=== PATIENT | female | born 1975 | race Caucasian/White ===

== ENCOUNTER 2022-05-12 12:35 | Inpatient (IN) | payer BC, SELFPAY ==
[2022-05-12] VITALS (8 sets, daily range): BP systolic 131–172; BP diastolic 74–101; PULSE 82–108; RESP 12–18; TEMP 36.5–37.3; O2SAT 96–100; BMI 45.3
--- NOTE | 2022-05-12 13:22 | ED_ITS ---
Documented by User: JULIO Daniel 05/12/22 16:46 HPI - Abdominal Pain General: Chief Complaint: Abdominal Pain Stated Complaint: Left lower abd pain Time Seen by Provider: 05/12/22 13:11 History of Present Illness: Patient is a 46-year-old female comes to the ED with abdominal pain. Symptoms started approximately 2 days ago. Abdominal pain is in the left lower quadrant of her abdomen. She says it initially started it was just a little sore and tender but has continued to progress and get more painful. She says its not constant aching pain that episodically increases in intensity. She currently rates the pain a 6 out of 10. Pain worsened after she had a bowel movement this morning. Bowel movement was normal. Denies any fever, chills, chest pain, shortness of breath, vomiting, diarrhea, constipation, blood in the stool, dysuria or hematuria. Associated Symptoms: Reports nausea; Denies chills, constipation, diarrhea, dysuria, fever(s), hematochezia, hematuria and vomiting Related Data: Date of Last Menstrual Period: 05/02/22 Review of Systems Const: Denies: fever(s), chills or fatigue Eyes: Denies: change in vision or eye discomfort ENMT: Denies: throat pain, odynophagia, nasal discharge or nasal congestion Card: Denies: chest pain, palpitations, edema, swelling of feet/ankles, dyspnea on exertion or orthopnea Resp: Denies: dyspnea, productive cough or non-productive cough GI: Reports: abdominal pain and nausea; Denies: vomiting, diarrhea, constipation or hematochezia : Denies: flank pain, dysuria or hematuria Musc: Denies: neck pain, back pain or extremity swelling Skin/Breast: Denies: rash or new lesions Neuro: Denies: headache(s), numbness in extremities or weakness in extremities PFSH ED PFSH: Medical History Hypothyroidism Iron deficiency anemia No pertinent family history Protein S deficiency Surgical History History of History of cholecystectomy Female Reproductive History: Date of last menstrual period: 05/02/22 Physical Exam Const: COMMON NORMALS: patient oriented x3 and alert GENERAL APPEARANCE: cooperative HENMT: COMMON NORMALS: normocephalic HEAD & SCALP: normocephalic MOUTH: Normal oral and palatal mucosa present THROAT: posterior oropharynx normal and uvula midline Neck/C-Spine: COMMON NORMALS: supple GENERAL: Yes normal visual inspection Resp: COMMON NORMALS: normal respiratory effort, No retractions, No use of accessory muscles and clear to auscultation bilaterally AUSCULTATION: clear to auscultation bilaterally Cardio: COMMON NORMALS: regular rate, regular rhythm, S1 normal heart sound present, S2 normal heart sound present, No gallops present (Cardio), No clicks present (Cardio), No murmurs present (Cardio) and Peripheral pulses 2+ throughout RATE: regular rate RHYTHM: regular rhythm HEART SOUNDS: S1 normal heart sound present and S2 normal heart sound present PERIPHERAL PULSES: Peripheral pulses 2+ throughout GI: COMMON NORMALS: Normal to inspection, nondistended, normoactive bowel sounds present, Soft to palpation and no masses PALPATION: Yes Soft to palpation and Yes Tenderness to palpation present (GI) Details: LLQ : COMMON NORMALS: Yes no CVA tenderness BLADDER/KIDNEY EXAM: Yes no CVA tenderness Back/Pelvis: COMMON NORMALS: no CVA tenderness Extremity: COMMON NORMALS: normal to inspection Neuro: COMMON NORMALS: patient oriented x3 SENSORIUM/ORIENTATION: Yes alert GAIT: Yes Normal gait present Skin: GENERAL SKIN EXAM: dry skin Course Vital Signs: Vital signs: Vital Signs Temperature 98.9 F 05/15/22 03:29 Pulse Rate 62 05/15/22 03:29 Respiratory Rate 18 05/15/22 03:29 Blood Pressure 141/82 05/15/22 03:29 Pulse Oximetry 98 05/15/22 03:29 Oxygen Delivery Me thod 05/15/22 03:29 MDM - Abdominal Pain Medical Decision Making Patient is a 46-year-old female who comes to the ED with left lower quadrant abdominal pain. Symptoms have been going on for past 2 days. Pain worsens after she has a bowel movement. Denies any fever, diarrhea, constipation or blood in stool. Endorses nausea but denies any emesis. Vitals are stable. Patient has some tenderness to the left lower quadrant of abdomen. Rest of exam is benign. White blood cell count of 15 rest of her labs are unremarkable. CT of abdomen pelvis shows acute diverticulitis with a contained perforation. I talked with Dr. Moya about patient case and he is going to contact hospitalist and have patient admitted. She was given IV fluids and IV Zosyn here in the ED. Lab Data I reviewed the patient's lab results. : 05/15/22 04:14 05/15/22 04:14 Labs/Radiology: Radiology Impressions Abdomen/Pelvis CT 05/12/22 13:50 IMPRESSION: 1. Acute diverticulitis at the junction of the distal descending and sigmoid colon, with prominent infiltration of pericolonic fat and small foci of extraluminal air, consistent with contained perforation. 2. Additional findings as described above. THIS REPORT CONTAINS FINDINGS THAT MAY BE CRITICAL TO PATIENT CARE. The findings were verbally communicated via telephone conference with PJ MELENDEZ at 3:25 PM CDT on 05/12/2022. The findings were acknowledged and understood. Laboratory Results WBC 15.0 10^3/uL (4.0-10.0) H 05/12/22 13:30 RBC 4.89 10^6/uL (4.1-5.3) 05/12/22 13:30 Hgb 13.3 g/dL (11.5-15.3) 05/12/22 13:30 Hct 42.5 % (37.0-47.0) 05/12/22 13:30 MCV 86.9 fl (81-99) 05/12/22 13:30 MCH 27.2 pg (28.0-34.0) L 05/12/22 13:30 MCHC 31.3 g/dL (30.0-36.0) 05/12/22 13:30 RDW 13.7 % (12.1-15.1) 05/12/22 13:30 Plt Count 314 10^3/cmm (130-400) 05/12/22 13:30 MPV 11.2 fL (7.4-10.4) H 05/12/22 13:30 Neut % (Auto) 88.1 % 05/12/22 13:30 Lymph % (Auto) 5.3 % 05/12/22 13:30 [place] % (Auto) 5.7 % 05/12/22 13:30 Eos % (Auto) 0.1 % 05/12/22 13:30 Baso % (Auto) 0.3 % 05/12/22 13:30 Neut # (Auto) 13.18 10^3/uL (1.8-7.7) H 05/12/22 13:30 Lymph # (Auto) 0.8 10^3/uL (0.8-4.8) 05/12/22 13:30 [place] # (Auto) 0.9 10^3/uL (0.2-0.9) 05/12/22 13:30 Eos # (Auto) 0.0 10^3/uL (0.0-0.8) 05/12/22 13:30 Baso # (Auto) 0.0 10^3/uL (0.0-0.1) 05/12/22 13:30 Nucleated RBC % (auto) 0 % 05/12/22 13:30 Nucleated RBCs # 0.0 /100WBC 05/12/22 13:30 Sodium 140 mmol/L (136-145) 05/12/22 13:30 Potassium 4.0 mmol/L (3.5-5.1) 05/12/22 13:30 Chloride 103 mmol/L (98-107) 05/12/22 13:30 Carbon Dioxide 24 mmol/L (22-29) 05/12/22 13:30 Anion Gap 17.0 (5-19) 05/12/22 13:30 BUN 9 mg/dL (6-20) 05/12/22 13:30 Creatinine 0.7 mg/dL (0.5-0.9) 05/12/22 13:30 GFR Calculation 90.5 mL/min (90-130) 05/12/22 13:30 Glucose 93 mg/dL (65-115) 05/12/22 13:30 Calculated Osmolality 288 mOsm/kg (285-295) 05/12/22 13:30 Calcium 8.7 mg/dL (8.5-10.5) 05/12/22 13:30 Iron 14 ug/dL (37-145) L 05/12/22 13:30 TIBC 306 mcg/dl 05/12/22 13:30 % Saturation 4.5 % (20-50) L 05/12/22 13:30 Unsat Iron Binding 292 ug/dL (112-347) 05/12/22 13:30 Total Bilirubin 0.4 mg/dL (0.15-1.2) 05/12/22 13:30 AST 12 U/L (0-32) 05/12/22 13:30 ALT 14 U/L (0-33) 05/12/22 13:30 Alkaline Phosphatase 74 U/L (35-105) 05/12/22 13:30 Total Protein 6.4 g/dL (6.6-8.7) L 05/12/22 13:30 Albumin 4.1 g/dL (3.5-5.2) 05/12/22 13:30 Globulin 2.3 g/dL (1.3-4.6) 05/12/22 13:30 Lipase 51 U/L (13-60) 05/12/22 13:30 Vitamin B12 639 pg/mL (232-1245) 05/12/22 13:30 Folate 12.9 ng/mL (4.8-37.3) 05/12/22 13:30 Procalcitonin 0.12 ng/mL (0-0.5) 05/12/22 13:30 TSH 1.86 uIU/mL (0.27-4.20) 05/12/22 13:30 HCG, Qual Negative (Negative) 05/12/22 13:30 Urine Color Yellow (Yellow) 05/12/22 13:09 Urine Appearance Hazy (CLEAR) A 05/12/22 13:09 Urine pH 5 (5-7) 05/12/22 13:09 Ur Specific [place] 1.020 (1.005-1.030) 05/12/22 13:09 Urine Protein Neg (Negative) 05/12/22 13:09 Urine Glucose (UA) Norm (Normal) 05/12/22 13:09 Urine Ketones 3+ (Negative) H 05/12/22 13:09 Urine Blood 2+ (Negative) H 05/12/22 13:09 Urine Nitrate Negative (Negative) 05/12/22 13:09 Urine Bilirubin Neg (Negative) 05/12/22 13:09 Urine Urobilinogen Norm mg/dL (Negative) 05/12/22 13:09 Ur Leukocyte Esterase Negative (Negative) 05/12/22 13:09 Urine RBC 0-4 /hpf (0-2) H 05/12/22 13:09 Urine WBC Rare /hpf (0-5) 05/12/22 13:09 Ur Squamous Epith Cells 15-25 /hpf (0-5) H 05/12/22 13:09 Amorphous Sediment Not Reportable 05/12/22 13:09 Urine Bacteria 3+ /hpf (NONE) H 05/12/22 13:09 Urine Mucus 2+ /hpf 05/12/22 13:09 Discharge Plan Discharge Patient Disposition: Admitted As Inpatient Admit Provider: Britton Burgos Clinical Impression: Diverticulitis Condition: Stable Sign Out Sign Out Data: Patient Sign Out occurred on 05/12/22 at 15:42. Patient's care was discussed, and care was transferred from to Leodan Moya DO. Coding Level of Care Code ED Explosive Ordnance Manager for Chg Fwd Exam Comprehensive Documented by User: Leodan Moya DO 05/15/22 06:08 HPI - Abdominal Pain General: Chief Complaint: Abdominal Pain Stated Complaint: Left lower abd pain Time Seen by Provider: 05/12/22 13:11 [facility] ED PFSH: Medical History Hypothyroidism Iron deficiency anemia No pertinent family history Protein S deficiency Surgical History History of History of cholecystectomy Course Vital Signs: Vital signs: Vital Signs Temperature 98.9 F 05/15/22 03:29 Pulse Rate 62 05/15/22 03:29 Respiratory Rate 18 05/15/22 03:29 Blood Pressure 141/82 05/15/22 03:29 Pulse Oximetry 98 05/15/22 03:29 Oxygen Delivery Me thod 05/15/22 03:29 MDM - Abdominal Pain Medical Decision Making Patient is a 46-year-old female who comes to the ED with left lower quadrant abdominal pain. Symptoms have been going on for past 2 days. Pain worsens after she has a bowel movement. Denies any fever, diarrhea, constipation or blood in stool. Endorses nausea but denies any emesis. Vitals are stable. Patient has some tenderness to the left lower quadrant of abdomen. Rest of exam is benign. White blood cell count of 15 rest of her labs are unremarkable. CT of abdomen pelvis shows acute diverticulitis with a contained perforation. I talked with Dr. Moya about patient case and he is going to contact hospitalist and have patient admitted. She was given IV fluids and IV Zosyn here in the ED. Discussed with hospitalist orders written. Patient has acute diverticulitis with a microperforation no abscess formation. Reviewed with the patient. IV an tibiotics initiated. Chart reviewed and patient discussed with midlevel. Agree with assessment and plan. Lab Data : 05/15/22 04:14 05/15/22 04:14 Labs/Radiology: Radiology Impressions Abdomen/Pelvis CT 05/12/22 13:50
[2022-05-12 13:40] LABS: Add Urine Microscopic? YES; Bilirubin Urine Neg (Negative); Blood Urine 2+ (Negative); Glucose Urine UA Norm (Normal); Ketones Urine 3+ (Negative); Leukocyte Esterase Urine Negative (Negative); Nitrate Urine Negative (Negative); Protein Urine Neg (Negative); Urine Appearance Hazy (CLEAR); Urine Color Yellow (Yellow); Urobilinogen Urine Norm (Negative); pH Urine 5 (5-7)
[2022-05-12 13:41] LABS: RBC Urine 0-4 /hpf (0-2); Squamous Epithelial Cell Urine 15-25 /hpf (0-5); WBC Urine RARE /hpf (0-5)
[2022-05-12 13:42] LABS: Add Urine Culture? No; Bacteria Urine 3+ /hpf; Mucus Urine 2+ /hpf
--- NOTE | 2022-05-12 13:50 | CTR_ITS ---
PROCEDURE INFORMATION: Exam: CT Abdomen And Pelvis Without Contrast Exam date and time: 05/12/2022 2:29 PM Age: 46 years old Clinical indication: Abdominal pain; Localized; Left lower quadrant (llq); Additional info: Llq abdominal tenderness and nausea TECHNIQUE: Imaging protocol: Computed tomography of the abdomen and pelvis without contrast. Radiation optimization: All CT scans at this facility use at least one of these dose optimization techniques: automated exposure control; mA and/or kV adjustment per patient size (includes targeted exams where dose is matched to clinical indication); or iterative reconstruction. COMPARISON: No relevant prior studies available. RADIATION DOSE METRICS: Total DLP (mGy-cm): 1144.17 FINDINGS: Detailed evaluation of the abdominal and pelvic viscera is somewhat limited in the absence of intravenous contrast. Lungs: No significant airspace or pleural disease. Liver: Fatty infiltration of the liver. Gallbladder and bile ducts: Status post cholecystectomy. Pancreas: Fat attenuation about the pancreatic body. Spleen: Enlarged spleen measuring 14.0 cm in length. Adrenal glands: Unremarkable adrenals. Kidneys and ureters: Normal renal morphology. No hydronephrosis. Stomach and bowel: Acute diverticulitis at the junction of the distal descending and sigmoid colon, with prominent infiltration of pericolonic fat and small foci of extraluminal air, consistent with contained perforation. Questionable wall thickening in the nondistended stomach. Scattered diverticula. Appendix: No acute appendicitis. Intraperitoneal space: Small quantity of free fluid in the left lower quadrant. Vasculature: Normal caliber of the abdominal aorta. Lymph nodes: Subcentimeter lymph nodes. Urinary bladder: Unremarkable bladder. Reproductive: 2.4 cm left ovarian cyst. Bones/joints: Mild degenerative change. Soft tissues: Umbilical hernia. Calcification at the gluteal muscle attachment sites. CT/CT abdomen pelvis wo con [id number] IMPRESSION: 1. Acute diverticulitis at the junction of the distal descending and sigmoid colon, with prominent infiltration of pericolonic fat and small foci of extraluminal air, consistent with contained perforation. 2. Additional findings as described above. THIS REPORT CONTAINS FINDINGS THAT MAY BE CRITICAL TO PATIENT CARE. The findings were verbally communicated via telephone conference with PJ MELENDEZ at 3:25 PM CDT on 05/12/2022. The findings were acknowledged and understood.
[2022-05-12 13:56] LABS: HCG, Serum Qual Negative (Negative)
[2022-05-12 14:01] LABS: Alanine Aminotransferase 14 U/L (0-33); Albumin Level 4.1 g/dL (3.5-5.2); Alkaline Phosphatase 74 U/L (35-105); Aspartate Amino Transferase 12 U/L (0-32); Blood Urea Nitrogen 9 mg/dL (6-20); Calcium 8.7 mg/dL (8.5-10.5); Carbon Dioxide 24 mmol/L (22-29); Chloride 103 mmol/L (98-107); Globulin 2.3 g/dL (1.3-4.6); Glomerular Filtration Rate 90.5 mL/min (90-130); Glucose 93 mg/dL (65-115); Lipase 51 U/L (13-60); Osmolality Calculated 288 mOsm/kg (285-295); Sodium 140 mmol/L (136-145); Total Bilirubin 0.4 mg/dL (0.15-1.2); Total Protein 6.4 g/dL (6.6-8.7)
[2022-05-12 14:05] LABS: Basophils % 0.3 %; Eosinophils % 0.1 %; Hematocrit 42.5 % (37.0-47.0); Hemoglobin 13.3 g/dL (11.5-15.3); Lymphocytes # 0.8 10^3/uL (0.8-4.8); Lymphocytes % 5.3 %; Mean Corpuscular HGB Conc 31.3 g/dL (30.0-36.0); Mean Corpuscular Hemoglobin 27.2 pg (28.0-34.0); Mean Corpuscular Volume 86.9 fl (81-99); Mean Platelet Volume 11.2 fL (7.4-10.4); Monocytes # 0.9 10^3/uL (0.2-0.9); Monocytes % 5.7 %; Neutrophils # 13.18 10^3/uL (1.8-7.7); Neutrophils % 88.1 %; Nucleated Red Blood Cells % 0 %; Platelet Count 314 10^3/cmm (130-400); Red Blood Count 4.89 10^6/uL (4.1-5.3); Red Cell Distribution Width 13.7 % (12.1-15.1)
[2022-05-12] MEDS: HYDROmorphone 1 mg/mL INJ 1 mL IVP ×2 (14:51→21:58)
[2022-05-12] MEDS: ondansetron 2 mg/ML SDV 2 mL 4 MG IVP ×2 (14:51→22:02)
--- NOTE | 2022-05-12 17:03 | P.HP_ITS ---
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 Complains of nausea but no vomiting. Has been having watery bowel movements. She states watery bowel movements this normal for her. In the ER CT scan was done which showed contained microperforation along with diverticulitis. Medicine was asked for admission given her history of protein S deficiency. Review of Systems General: Reports: 10 or more systems reviewed and unremarkable except in HPI and below Const: Denies: fever(s), chills, body aches, change in appetite, change in weight, malaise, night sweats, diaphoresis, change in sleep pattern, daytime sleepiness or snoring Eyes: Denies: change in vision, blurry vision, photophobia, eye discomfort or eye discharge ENMT: Denies: throat pain, enlarged tonsils, hoarseness, mouth pain, oral sores, dry mouth, tinnitus, nasal congestion or post nasal drip Card: Denies: chest pain, palpitations, irregular heart rhythm, edema, swelling of feet/ankles, lightheadedness, syncope, pre-syncope, dyspnea on exertion, orthopnea, leg pain with exertion or acrocyanosis Resp: Denies: dyspnea, productive cough, non-productive cough, wheezing, stri milena, pain on inspiration, change in phlegm color, hemoptysis or chest congestion GI: Denies: abdominal pain, nausea, vomiting, hematemesis, coffee ground emesis, dysphagia, heartburn, diarrhea, constipation, bloating, GI cramping, change in bowel habits, pain on defecation, hematochezia or melena : Denies: flank pain, dysuria, urinary frequency, urinary urgency, urinary hesitancy, nocturia or hematuria Musc: Denies: neck pain, back pain, extremity pain, joint pain, joint swelling, joint redness, joint stiffness or limited range of motion Neuro: Denies: headache(s), numbness in extremities, weakness in extremities, sensory changes, lack of coordination, difficulty walking, frequent falls, dizziness, vertigo, confusion, Slurred speech present, difficulty communicating thoughts or seizure-like activity Psych: Denies: anxiety, depression, mood swings, panic attacks, hopelessness or irritability Endo: Denies: polyuria, polydipsia, tired all the time, cold intolerance, excessive sweating, flushing or heat intolerance [place]/Lymph: Denies: easy bruising or easy bleeding All/Imm: Denies: tongue swelling, facial swelling or acute wheezing Medications/Allergies Home Medications Medication Instructions Recorded Confirmed Last Taken Type bimatoprost 0.01 % eye drops 1 drp ophthalmic (eye) BEDTIME 05/12/22 05/12/22 05/11/22 History (Lumigan) famotidine 40 mg tablet 40 mg PO DAILY 05/12/22 05/12/22 05/11/22 History ferrous sulfate 27 mg iron tablet 27 mg PO DAILY 05/12/22 05/12/22 05/11/22 History levothyroxine 50 mcg tablet 50 mcg PO DAILY 05/12/22 05/12/22 05/11/22 History (Synthroid) rivaroxaban 20 mg tablet (Xarelto) 20 mg PO DAILY 05/12/22 05/12/22 05/11/22 History triamterene 37.5 1 tab PO DAILY 05/12/22 05/12/22 05/11/22 History mg-hydrochlorothiazide 25 mg tablet Allergies Allergy/AdvReac Type Severity Reaction Status Date / Time No Known Allergies Allergy Unverified 05/12/22 15:57 PFSH Acute PFSH: Medical History (Updated 05/12/22 @ 17:08 by Britton Burgos MD) Hypothyroidism Iron deficiency anemia No pertinent family history Protein S deficiency Surgical History History of History of cholecystectomy Female Reproductive History: Date of last menstrual period: 05/02/22 Vitals/I&O/Wt Last Vital Signs Temp 97.7 F 05/12/22 12:40 Pulse 108 H 05/12/22 12:40 Resp 16 05/12/22 14:51 BP 172/101 05/12/22 12:40 Pulse Ox 96 05/12/22 14:51 O2 Del Method 05/12/22 12:40 Weight last 48 hrs Weight 119.748 kg Physical Exam Narrative: General: No acute distress, AO x3 HEENT: PERRLA, pupils bilaterally equal and reactive Chest: Normal vesicular breath sounds, no added sounds, equal good air entry bilaterally CVS: S1-S2 regular, no murmurs, no tachycardia, no gallops, no rubs Abdomen: Tender in left lower quadrant, rigidity present, guarding present, no organomegaly, bowel sounds present but sluggish Neuro: No focal deficits, no facial deformity, AO x3, power 5/5 in all limbs Data : 05/12/22 13:30 05/12/22 13:30 A&P Assessment and plan (1) Perforation and abscess of large intestine concurrent with and due to diverticulitis: Seen on CT scan. Surgery consulted from the ER. NPO. Blood culture, MRSA swab, procalcitonin. IV Zosyn. Protonix 40 mg IV daily, Zofran as needed. Out of bed to chair, early ambulation Status: Acute (2) Diverticulitis: Status: Acute (3) Protein S deficiency: Continue with home dose of Xarelto. Monitor hemoglobin. Status: Acute (4) Iron deficiency anemia: Hemoglobin stable. Check iron panel, folate, B12 Status: Acute Plan Full code NPO. Protonix for PUD prophylaxis Xarelto will suffice as DVT prophylaxis Attestations Medical Necessity Statement*: Admission for more than 2 midnights for management of contained perforation in setting of diverticulitis Time Spent in Patient Care: Greater than 35 minutes Coding Level of Care Code Acute Assistant Professor Of Education for [facility] Heladio Diagnoses Perforation and abscess of large intestine concurrent with and due to diverticulitis K57.20 Diverticulitis K57.92 Protein S deficiency D68.59 Iron deficiency anemia D50.9
[2022-05-12] MEDS: sodium chloride 0.9% 1,000 ML 999 ML IV (17:14)
[2022-05-12] MEDS: piperacillin-tazobactam 3.375 GM in sodium chloride 0.9% (plus) 50 ML IV (17:14)
[2022-05-12 17:57] LABS: Procalcitonin 0.12 ng/mL (0-0.5); Thyroid Stimulating Hormone 1.86 uIU/mL (0.27-4.20)
[2022-05-12 18:08] LABS: Iron 14 ug/dL (37-145); Percent Saturation 4.5 % (20-50); Total Iron Binding Capacity 306 mcg/dl; Unsaturated Iron Binding 292 ug/dL (112-347)
[2022-05-12] MEDS: pantoprazole 40 mg SDV IVP (18:47)
[2022-05-12 19:21] LABS: Vitamin B12 639 pg/mL (232-1245)
[2022-05-12] MEDS: dextrose 5%-sod chloride 0.9% 1,000 ML 50 ML IV (19:25)
[2022-05-12 19:59] LABS: Folate Level 12.9 ng/mL (4.8-37.3)
[2022-05-13] VITALS (8 sets, daily range): BP systolic 102–121; BP diastolic 60–72; PULSE 73–78; RESP 12–18; TEMP 36.6–36.8; O2SAT 95–99
[2022-05-13] MEDS: piperacillin-tazobactam 3.375 GM in sodium chloride 0.9% (plus) 50 ML IV ×3 (00:42→18:01)
[2022-05-13] MEDS: HYDROmorphone 1 mg/mL INJ 1 mL IVP ×2 (04:16→15:17)
[2022-05-13 04:27] LABS: Basophils % 0.4 %; Eosinophils # 0.1 10^3/uL (0.0-0.8); Eosinophils % 0.6 %; Hematocrit 37.2 % (37.0-47.0); Hemoglobin 11.2 g/dL (11.5-15.3); Lymphocytes # 1.3 10^3/uL (0.8-4.8); Lymphocytes % 12.6 %; Mean Corpuscular HGB Conc 30.1 g/dL (30.0-36.0); Mean Corpuscular Hemoglobin 27.4 pg (28.0-34.0); Mean Platelet Volume 10.9 fL (7.4-10.4); Monocytes # 0.8 10^3/uL (0.2-0.9); Monocytes % 8.1 %; Neutrophils # 7.83 10^3/uL (1.8-7.7); Nucleated Red Blood Cells % 0 %; Platelet Count 244 10^3/cmm (130-400); Red Blood Count 4.09 10^6/uL (4.1-5.3)
[2022-05-13 04:41] LABS: Chol HDL Ratio 3.16 mg/dL (0.0-4.40); Cholesterol 117 mg/dL (0-200); HDL Cholesterol 37 mg/dL (60-100); LDL Cholesterol Calculated 69 mg/dL (50-129); Triglycerides 55 mg/dL (0-150); VLDL Cholestrol Calculation 11 mg/dL (0-30)
[2022-05-13 04:46] LABS: Alanine Aminotransferase 25 U/L (0-33); Albumin Level 3.1 g/dL (3.5-5.2); Alkaline Phosphatase 75 U/L (35-105); Aspartate Amino Transferase 29 U/L (0-32); Blood Urea Nitrogen 7 mg/dL (6-20); Calcium 8.3 mg/dL (8.5-10.5); Carbon Dioxide 23 mmol/L (22-29); Chloride 106 mmol/L (98-107); Globulin 2.6 g/dL (1.3-4.6); Glomerular Filtration Rate 90.5 mL/min (90-130); Glucose 109 mg/dL (65-115); Osmolality Calculated 283 mOsm/kg (285-295); Sodium 137 mmol/L (136-145); Total Bilirubin 0.6 mg/dL (0.15-1.2); Total Protein 5.7 g/dL (6.6-8.7)
[2022-05-13 04:51] LABS: Estmated Average Glucose 108; Hemoglobin A1C 5.4 % (4.0-6.0)
[2022-05-13] MEDS: acetaminophen 325 mg Tablet 650 MG PO ×2 (04:57→15:17)
[2022-05-13 05:09] LABS: Anion Gap 11.4 (5-19); Potassium 3.4 mmol/L (3.5-5.1)
[2022-05-13] MEDS: levothyroxine 50 mcg Tablet PO (08:31)
[2022-05-13] MEDS: ondansetron 2 mg/ML SDV 2 mL 4 MG IVP ×2 (08:31→15:18)
--- NOTE | 2022-05-13 08:37 | P.CONIM_ITS ---
Providers/Reason For Consult Consulting Physician/Specialty*: Dr. Jonathan Browne, DO/General surgery Reason for Consult*: Diverticulitis with microperforation Attending Physician: Britton Burgos MD History of Present Illness History of Present Illness Tiara Briggs is a 46 year old female, with protein S deficiency on Xarelto, presented to the hospital with a 2-day history of sharp and constant left lower quadrant abdominal pain. The pain does not radiate. Palpation makes the pain worse. Nothing makes pain better. She denies any diarrhea or constipation. She has felt nauseous. Denies any hematochezia and/or melena. Denies fever or chills. She has never had diverticulitis before. She has never had a colonoscopy before. Review of Systems General: Reports: 10 or more systems reviewed and unremarkable except in HPI and below Medications/Allergies Home Medications Medication Instructions Recorded Confirmed Last Taken Type bimatoprost 0.01 % eye drops 1 drp ophthalmic (eye) BEDTIME 05/12/22 05/12/22 05/11/22 History (Lumigan) famotidine 40 mg tablet 40 mg PO DAILY 05/12/22 05/12/22 05/11/22 History ferrous sulfate 27 mg iron tablet 27 mg PO DAILY 05/12/22 05/12/22 05/11/22 History levothyroxine 50 mcg tablet 50 mcg PO DAILY 05/12/22 05/12/22 05/11/22 History (Synthroid) rivaroxaban 20 mg tablet (Xarelto) 20 mg PO DAILY 05/12/22 05/12/22 05/11/22 History triamterene 37.5 1 tab PO DAILY 05/12/22 05/12/22 05/11/22 History mg-hydrochlorothiazide 25 mg tablet Allergies Allergy/AdvReac Type Severity Reaction Status Date / Time No Known Allergies Allergy Unverified 05/12/22 15:57 Current Medications Generic Name Dose Route Start Last Admin Trade Name Freq PRN Reason Stop Dose Admin Acetaminophen 650 mg 05/13/22 04:37 05/13/22 04:57 Acetaminophen 325 Mg Tablet PO 650 mg Q6H PRN Administration MILD PAIN Hydromorphone HCl 1 mg 05/12/22 20:05 05/13/22 04:16 Hydromorphone 1 Mg/Ml Inj 1 Ml IVP 1 mg Q4H PRN Administration MODERATE TO SEVERE PAIN Piperacillin Sod/Tazobactam 50 mls @ 12.5 mls/hr 05/13/22 01:00 05/13/22 04:51 Sod 3.375 gm/ Sodium Chloride IV Infused Q8H WALLACE Infusion Protocol Dextrose/Sodium Chloride 1,000 mls @ 50 mls/hr 05/12/22 18:28 05/12/22 19:25 Dextrose 5%-Sod Chloride 0.9% IV 50 mls/hr .Q20H WALLACE Administration Levothyroxine Sodium 50 mcg 05/13/22 09:00 05/13/22 08:31 Levothyroxine 50 Mcg Tablet PO 50 mcg DAILY WALLACE Administration Ondansetron HCl 4 mg 05/12/22 18:28 05/13/22 08:31 Ondansetron 2 Mg/Ml Sdv 2 Ml IVP 4 mg Q6H PRN Administration NAUSEA AND VOMITING Pantoprazole Sodium 40 mg 05/12/22 18:28 05/12/22 18:47 Pantoprazole 40 Mg Sdv IVP 40 mg Q24H WALLACE Administration PFSH Acute PFSH: Medical History Hypothyroidism Iron deficiency anemia No pertinent family history Protein S deficiency Surgical History History of History of cholecystectomy Female Reproductive History: Date of last menstrual period: 05/02/22 Vitals/I&O/Wt Last Vital Signs Temp 98.2 F 05/13/22 07:07 Pulse 73 05/13/22 07:07 Resp 18 05/13/22 07:07 BP 104/60 05/13/22 07:07 Pulse Ox 97 05/13/22 07:07 O2 Del Method 05/13/22 07:07 05/12/22 05/13/22 05/13/22 22:59 06:59 14:59 Intake Total 1050 / 1050 50 / 1100 Balance 1050 / 1050 50 / 1100 Weight last 48 hrs Weight 280 lb 5 oz Weight 264 lb Physical Exam Narrative: General : Patient is well developed , no acute distress, oriented x3 Head : Normal cephalic, a-traumatic. Ears : Pinnae and external canal are normal. Hearing is normal. Eyes : PERRLA, Sclera and injection are normal. No conjunctival discharge. Nose : Mucous membranes are without erythema. Throat : buccal mucosa is normal, gums are without significant recession or hypertrophy. Lungs : Equal chest rise bilaterally, no use of accessory muscles, trachea is midline. Cor : Rate and rhythm are normal. Abdomen : Soft, ND, tenderness to palpation in the left lower quadrant, no g/r/m Extremities : No edema, no cyanosis or clubbing, dorsalis pedis pulses are present bilaterally, non-tender to palpation of calves. Upper extremities are normal bilaterally. Back : non-tender to palpation, no CVA tenderness. Neuro : CN II - XII intact, Upper and lower extremities have equal and full strength Data : 05/13/22 04:01 05/13/22 04:01 Micro: Microbiology 05/12/22 19:01 Blood Culture - Preliminary Blood SPECIMEN COLLECTED 05/12/22 19:01 Blood Culture - Preliminary Blood SPECIMEN COLLECTED A&P Assessment and plan (1) Diverticulitis of large intestine with complication: Status: Acute Plan Continue Zosyn and night course of antibiotics, to go home on Augmentin N.p.o.-bowel rest for today and if patient's symptoms improve will start clear liquids tomorrow No acute surgical intervention She will need a colonoscopy in 6 to 8 weeks Medical management per hospitalist Coding Level of Care Code Acute Electrical Controls Technician for [employer] [facility] Diagnoses Diverticulitis of large intestine with complication K57.32
--- NOTE | 2022-05-13 12:56 | P.PN_ITS ---
Subjective Subjective: No events overnight. Patient denies any nausea vomiting, headache. States feeling better. Continues to have nausea but no vomiting. No bowel movements. Passing flatus. Vitals/I&O/Wt Last Vital Signs Temp 98.2 F 05/13/22 11:13 Pulse 75 05/13/22 11:13 Resp 18 05/13/22 11:13 BP 102/61 05/13/22 11:13 Pulse Ox 98 05/13/22 11:13 O2 Del Method 05/13/22 11:13 05/12/22 05/13/22 05/13/22 22:59 06:59 14:59 Intake Total 1050 / 1050 50 / 1100 Balance 1050 / 1050 50 / 1100 Weight last 48 hrs Weight 127.148 kg Weight 119.748 kg Physical Exam Narrative: General: No acute distress, AO x3 HEENT: PERRLA, pupils bilaterally equal and reactive Chest: Normal vesicular breath sounds, no added sounds, equal good air entry bilaterally CVS: S1-S2 regular, no murmurs, no tachycardia, no gallops, no rubs Abdomen: Tender in left lower quadrant, rigidity present, guarding present, no organomegaly, bowel sounds present but sluggish Neuro: No focal deficits, no facial deformity, AO x3, power 5/5 in all limbs Data : 05/13/22 04:01 05/13/22 04:01 Micro: Microbiology 05/12/22 19:01 Blood Culture - Preliminary Blood SPECIMEN COLLECTED 05/12/22 19:01 Blood Culture - Preliminary Blood SPECIMEN COLLECTED A&P Assessment and plan (1) Perforation and abscess of large intestine concurrent with and due to divert iculitis: Seen on CT scan. N.p.o. for bowel rest. IV Zosyn. Plan to discharge on oral antibiotics once tolerating diet. Diet as per surgical team. Most likely can be discharged on Augmentin. Protonix 40 mg IV daily, Zofran as needed. Out of bed to chair, early ambulation Status: Acute (2) Diverticulitis: Status: Acute (3) Protein S deficiency: Continue with home dose of Xarelto. Monitor hemoglobin. Status: Acute (4) Iron deficiency anemia: Hemoglobin stable. Check iron panel, folate, B12 Status: Acute Plan Full code NPO. 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
[2022-05-13] MEDS: dextrose 5%-sod chloride 0.9% 1,000 ML 50 ML IV (15:25)
--- NOTE | 2022-05-13 17:17 | PC.NURSE ---
Patients family stated patient had small emesis. Patient dumped, unable to measure amount
[2022-05-13] MEDS: pantoprazole 40 mg SDV IVP (18:00)
[2022-05-13] MEDS: metoclopramide 5 mg/mL SDV 2 mL IVP (20:42)
[2022-05-13] MEDS: rivaroxaban 10 mg Tablet 20 MG PO (20:51)
[2022-05-14] VITALS (8 sets, daily range): BP systolic 104–127; BP diastolic 69–83; PULSE 64–79; RESP 14–18; TEMP 36.4–36.9; O2SAT 96–99
[2022-05-14] MEDS: piperacillin-tazobactam 3.375 GM in sodium chloride 0.9% (plus) 50 ML IV ×3 (00:30→17:44)
[2022-05-14] MEDS: levothyroxine 50 mcg Tablet PO (08:39)
--- NOTE | 2022-05-14 09:37 | PM.PN ---
Subjective Subjective: Given lab holiday today. Patient states she is doing a lot better. Seen sitting in recliner today. Had nausea and vomiting yesterday. Today states nausea and vomiting is gone. Tolerating clear liquid diet for now. States pain is better. Vitals/I&O/Wt Last Vital Signs Temp 98.4 F 05/14/22 07:49 Pulse 72 05/14/22 07:49 Resp 18 05/14/22 07:49 BP 117/73 05/14/22 07:49 Pulse Ox 97 05/14/22 07:49 O2 Del Method 05/14/22 07:49 05/13/22 05/14/22 05/14/22 22:59 06:59 14:59 Intake Total 1170 / 1220 50 / 1270 Balance 1170 / 1220 50 / 1270 Weight last 48 hrs Weight 126.325 kg Weight 127.148 kg Weight 119.748 kg Physical Exam Narrative: General: No acute distress, AO x3 HEENT: PERRLA, pupils bilaterally equal and reactive Chest: Normal vesicular breath sounds, no added sounds, equal good air entry bilaterally CVS: S1-S2 regular, no murmurs, no tachycardia, no gallops, no rubs Abdomen: Tender in left lower quadrant, rigidity present, guarding present, no organomegaly, bowel sounds present but sluggish Neuro: No focal deficits, no facial deformity, AO x3, power 5/5 in all limbs Data : 05/13/22 04:01 05/13/22 04:01 Micro: Microbiology 05/12/22 19:01 Blood Culture - Preliminary Blood NEGATIVE TO DATE 05/12/22 19:01 Blood Culture - Preliminary Blood NEGATIVE TO DATE 05/12/22 22:45 MRSA Culture - Final Nose A&P Assessment and plan (1) Perforation and abscess of large intestine concurrent with and due to diverticulitis: Seen on CT scan. N.p.o. for bowel rest. IV Zosyn. Plan to discharge on oral antibiotics once tolerating diet. Diet as per surgical team. Most likely can be discharged on Augmentin. Protonix 40 mg IV daily, Zofran as needed. Out of bed to chair, early ambulation Status: Acute (2) Diverticulitis: Status: Acute (3) Protein S deficiency: Continue with home dose of Xarelto. Monitor hemoglobin. Status: Acute (4) Iron deficiency anemia: Hemoglobin stable. Status: Acute Plan Full code Clear liquid diet. Protonix for PUD prophylaxis Xarelto will suffice as DVT prophylaxis Plan for the day: Continue with Zosyn for now. Advance to clear liquid diet. If continues to tolerate well can look for discharge within next 24 hours or later in the evening today. Will await surgical recommendations. Continue home dose of Xarelto and levothyroxine. Discharge planning discussed in detail with the patient. Discussed that she would need colonoscopy in 6 to 8 weeks for further evaluation. Also discussed that she would need oral antibiotics for at least 10 to 14 days. Both patient and verbalized understanding. 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
[2022-05-14] MEDS: oxyCODONE 5 mg IR Tab/Cap PO (11:53)
--- NOTE | 2022-05-14 11:55 | PC.NURSE ---
Patient tolerating Clear Liquids. Dr. Burgos verbally ordered fluids to be discontinued at this time.
--- NOTE | 2022-05-14 14:11 | P.PN_ITS ---
Subjective Subjective: Patient reports that her pain has improved. Denies any nausea or vomiting. Tolerating clear liquids Vitals/I&O/Wt Last Vital Signs Temp 97.7 F 05/15/22 07:27 Pulse 65 05/15/22 07:27 Resp 18 05/15/22 07:27 BP 111/70 05/15/22 07:27 Pulse Ox 92 05/15/22 07:27 O2 Del Method 05/15/22 07:27 05/14/22 05/15/22 05/15/22 22:59 06:59 14:59 Intake Total 1410 / 1700 650 / 2350 Balance 1410 / 1700 650 / 2350 Weight last 48 hrs Weight 281 lb Weight 278 lb 8 oz Physical Exam Narrative: General: No acute distress, awake alert and oriented x3 Abdomen: Soft, nondistended, tender to palpation in the left lower quadrant but improved, no guarding or rebound Data : 05/15/22 04:14 05/15/22 04:14 A&P Assessment and plan (1) Diverticulitis of large intestine with complication: Status: Acute Plan Continue Zosyn and night course of antibiotics, to go home on Augmentin clear liquids, full liquids tomorrow if continuing to improve. 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
[2022-05-14] MEDS: acetaminophen 325 mg Tablet 650 MG PO (17:44)
[2022-05-14] MEDS: pantoprazole 40 mg SDV IVP (17:45)
[2022-05-14] MEDS: rivaroxaban 10 mg Tablet 20 MG PO (20:01)
[2022-05-15] MEDS: piperacillin-tazobactam 3.375 GM in sodium chloride 0.9% (plus) 50 ML IV ×2 (00:05→08:16)
[2022-05-15 03:29] VITALS: BP 141/82; PULSE 62; RESP 18; TEMP 37.2; O2SAT 98
[2022-05-15 05:04] LABS: Basophils % 0.6 %; Eosinophils # 0.1 10^3/uL (0.0-0.8); Eosinophils % 2.8 %; Hematocrit 35.2 % (37.0-47.0); Hemoglobin 10.9 g/dL (11.5-15.3); Lymphocytes # 1.4 10^3/uL (0.8-4.8); Lymphocytes % 29.6 %; Mean Corpuscular Hemoglobin 26.9 pg (28.0-34.0); Mean Corpuscular Volume 86.9 fl (81-99); Mean Platelet Volume 10.9 fL (7.4-10.4); Monocytes # 0.3 10^3/uL (0.2-0.9); Neutrophils % 59.8 %; Nucleated Red Blood Cells % 0 %; Platelet Count 258 10^3/cmm (130-400); Red Blood Count 4.05 10^6/uL (4.1-5.3); Red Cell Distribution Width 13.7 % (12.1-15.1); White Blood Count 4.7 10^3/uL (4.0-10.0)
[2022-05-15 05:41] LABS: Alanine Aminotransferase 24 U/L (0-33); Alkaline Phosphatase 66 U/L (35-105); Anion Gap 11.1 (5-19); Aspartate Amino Transferase 15 U/L (0-32); Blood Urea Nitrogen 5 mg/dL (6-20); Calcium 7.9 mg/dL (8.5-10.5); Carbon Dioxide 25 mmol/L (22-29); Chloride 106 mmol/L (98-107); Globulin 2.4 g/dL (1.3-4.6); Glomerular Filtration Rate 90.5 mL/min (90-130); Glucose 92 mg/dL (65-115); Osmolality Calculated 285 mOsm/kg (285-295); Potassium 3.1 mmol/L (3.5-5.1); Sodium 139 mmol/L (136-145); Total Bilirubin 0.2 mg/dL (0.15-1.2); Total Protein 5.4 g/dL (6.6-8.7)
[2022-05-15 07:27] VITALS: BP 111/70; PULSE 65; RESP 18; TEMP 36.5; O2SAT 92
[2022-05-15] MEDS: levothyroxine 50 mcg Tablet PO (08:16)
--- NOTE | 2022-05-15 08:39 | PM.PN ---
Subjective Subjective: Patient reports that her pain has improved. Denies any nausea or vomiting. Tolerating clear liquids. +BM/flatus, having diarrhea Vitals/I&O/Wt Last Vital Signs Temp 97.7 F 05/15/22 07:27 Pulse 65 05/15/22 07:27 Resp 18 05/15/22 07:27 BP 111/70 05/15/22 07:27 Pulse Ox 92 05/15/22 07:27 O2 Del Method 05/15/22 07:27 05/14/22 05/15/22 05/15/22 22:59 06:59 14:59 Intake Total 1410 / 1700 650 / 2350 Balance 1410 / 1700 650 / 2350 Weight last 48 hrs Weight 281 lb Weight 278 lb 8 oz Physical Exam Narrative: General: No acute distress, awake alert and oriented x3 Abdomen: Soft, nondistended, tender to palpation in the left lower quadrant but improved, no guarding or rebound Data : 05/15/22 04:14 05/15/22 04:14 A&P Assessment and plan (1) Diverticulitis of large intestine with complication: Status: Acute Plan Continue Zosyn and night course of antibiotics, to go home on Augmentin full liquids. Surgically stable for discharge on full liquid diet for three days. Then soft diet until she sees me in office in 2 weeks. 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
--- NOTE | 2022-05-15 10:18 | P.DS_ITS ---
Discharge Providers Date of Admission: 05/12/22 16:22 Date of Discharge: May 15, 2022 Attending Provider at Admission: Britton Burgos MD Attending Provider at Discharge: Maryam Drew MD Diagnoses at Discharge Discharge Diagnosis (1) Diverticulitis of large intestine with complication: Status: Acute Reason for Visit Reason for Visit: Left lower abd pain Brief History: As per Dr. 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 Complains of nausea but no vomiting.? Has been having watery bowel movements.? She states watery bowel movements this normal for her.? In the ER CT scan was done which showed contained microperforation along with diverticulitis.? Medicine was asked for admission given her history of protein S deficiency. Hospital Course Hospital Course Patient admitted for diverticulitis of large intestine with microperforation. She was seen by general surgery and followed. She has been tolerating clear liquids and having bowel movements and passing flatus. Patient having loose stools. No acute surgical intervention indicated at this time. She should complete 14-day course of antibiotics at home. Colonoscopy to be scheduled within 6 to 8 weeks. Discussed with the patient and she demonstrates u nderstanding. Patient will be discharged home in stable condition today. I did discuss with her if she experiences including but not limited to Worsening diarrhea, blood in stool, lightheadedness, dizziness, worsening abdominal pain she should go back to the ER. Physical Exam Narrative: General: No acute distress, AO x3 HE ENT: PERRLA, pupil s bilaterally equa l and reactive Vanessa st: Normal vesicul ar breath sounds, no added sounds, e qual good air entr y bilaterally CVS: S1-S2 regular, no murmurs, no tachy cardia, no gallops , no rubs Abdomen: Mildly tender in left lower quadran t, abdomen soft, n o guarding, no org anomegaly, bowel s ounds present but sluggish Neuro: No focal deficits Discharge Data Studies Completed and Pending Completed Studies During Hospitalization Category Date Time Status CT abdomen pelvis con [id number] Stat Cat Scan 05/12/22 13:50 Completed Pending at discharge Category Date Time Status Blood Culture Stat Lab 05/12/22 19:01 Results Radiology Impressions Abdomen/Pelvis CT 05/12/22 13:50 IMPRESSION: 1. Acute diverticulitis at the junction of the distal descending and sigmoid colon, with prominent infiltration of pericolonic fat and small foci of extraluminal air, consistent with contained perforation. 2. Additional findings as described above. THIS REPORT CONTAINS FINDINGS THAT MAY BE CRITICAL TO PATIENT CARE. The findings were verbally communicated via telephone conference with PJ MELENDEZ at 3:25 PM CDT on 05/12/2022. The findings were acknowledged and understood. Laboratory Results WBC 4.7 10^3/uL (4.0-10.0) 05/15/22 04:14 RBC 4.05 10^6/uL (4.1-5.3) L 05/15/22 04:14 Hgb 10.9 g/dL (11.5-15.3) L 05/15/22 04:14 Hct 35.2 % (37.0-47.0) L 05/15/22 04:14 MCV 86.9 fl (81-99) 05/15/22 04:14 MCH 26.9 pg (28.0-34.0) L 05/15/22 04:14 MCHC 31.0 g/dL (30.0-36.0) 05/15/22 04:14 RDW 13.7 % (12.1-15.1) 05/15/22 04:14 Plt Count 258 10^3/cmm (130-400) 05/15/22 04:14 MPV 10.9 fL (7.4-10.4) H 05/15/22 04:14 Neut % (Auto) 59.8 % 05/15/22 04:14 Lymph % (Auto) 29.6 % 05/15/22 04:14 [place] % (Auto) 7.0 % 05/15/22 04:14 Eos % (Auto) 2.8 % 05/15/22 04:14 Baso % (Auto) 0.6 % 05/15/22 04:14 Neut # (Auto) 2.80 10^3/uL (1.8-7.7) 05/15/22 04:14 Lymph # (Auto) 1.4 10^3/uL (0.8-4.8) 05/15/22 04:14 [place] # (Auto) 0.3 10^3/uL (0.2-0.9) 05/15/22 04:14 Eos # (Auto) 0.1 10^3/uL (0.0-0.8) 05/15/22 04:14 Baso # (Auto) 0.0 10^3/uL (0.0-0.1) 05/15/22 04:14 Nucleated RBC % (auto) 0 % 05/15/22 04:14 Nucleated RBCs # 0.0 /100WBC 05/15/22 04:14 Sodium 139 mmol/L (136-145) 05/15/22 04:14 Potassium 3.1 mmol/L (3.5-5.1) L 05/15/22 04:14 Chloride 106 mmol/L (98-107) 05/15/22 04:14 Carbon Dioxide 25 mmol/L (22-29) 05/15/22 04:14 Anion Gap 11.1 (5-19) 05/15/22 04:14 BUN 5 mg/dL (6-20) L 05/15/22 04:14 Creatinine 0.7 mg/dL (0.5-0.9) 05/15/22 04:14 GFR Calculation 90.5 mL/min (90-130) 05/15/22 04:14 Glucose 92 mg/dL (65-115) 05/15/22 04:14 Estimat Average Glucose 108 05/13/22 04:01 Hemoglobin A1c 5.4 % (4.0-6.0) 05/13/22 04:01 Calculated Osmolality 285 mOsm/kg (285-295) 05/15/22 04:14 Calcium 7.9 mg/dL (8.5-10.5) L 05/15/22 04:14 Magnesium 2.0 mg/dL (1.7-2.3) 05/13/22 04:01 Iron 14 ug/dL (37-145) L 05/12/22 13:30 TIBC 306 mcg/dl 05/12/22 13:30 % Saturation 4.5 % (20-50) L 05/12/22 13:30 Unsat Iron Binding 292 ug/dL (112-347) 05/12/22 13:30 Total Bilirubin 0.2 mg/dL (0.15-1.2) 05/15/22 04:14 AST 15 U/L (0-32) 05/15/22 04:14 ALT 24 U/L (0-33) 05/15/22 04:14 Alkaline Phosphatase 66 U/L (35-105) 05/15/22 04:14 Total Protein 5.4 g/dL (6.6-8.7) L 05/15/22 04:14 Albumin 3.0 g/dL (3.5-5.2) L 05/15/22 04:14 Globulin 2.4 g/dL (1.3-4.6) 05/15/22 04:14 Triglycerides 55 mg/dL (0-150) 05/13/22 04:01 Cholesterol 117 mg/dL (0-200) 05/13/22 04:01 LDL Cholesterol, Calc 69 mg/dL (50-129) 05/13/22 04:01 Total VLDL Cholesterol 11 mg/dL (0-30) 05/13/22 04:01 HDL Cholesterol 37 mg/dL (60-100) L 05/13/22 04:01 Cholesterol/HDL Ratio 3.16 mg/dL (0.0-4.40) 05/13/22 04:01 Lipase 51 U/L (13-60) 05/12/22 13:30 Vitamin B12 639 pg/mL (232-1245) 05/12/22 13:30 Folate 12.9 ng/mL (4.8-37.3) 05/12/22 13:30 Procalcitonin 0.12 ng/mL (0-0.5) 05/12/22 13:30 TSH 1.86 uIU/mL (0.27-4.20) 05/12/22 13:30 HCG, Qual Negative (Negative) 05/12/22 13:30 Urine Color Yellow (Yellow) 05/12/22 13:09 Urine Appearance Hazy (CLEAR) A 05/12/22 13:09 Urine pH 5 (5-7) 05/12/22 13:09 Ur Specific [place] 1.020 (1.005-1.030) 05/12/22 13:09 Urine Protein Neg (Negative) 05/12/22 13:09 Urine Glucose (UA) Norm (Normal) 05/12/22 13:09 Urine Ketones 3+ (Negative) H 05/12/22 13:09 Urine Blood 2+ (Negative) H 05/12/22 13:09 Urine Nitrate Negative (Negative) 05/12/22 13:09 Urine Bilirubin Neg (Negative) 05/12/22 13:09 Urine Urobilinogen Norm mg/dL (Negative) 05/12/22 13:09 Ur Leukocyte Esterase Negative (Negative) 05/12/22 13:09 Urine RBC 0-4 /hpf (0-2) H 05/12/22 13:09 Urine WBC Rare /hpf (0-5) 05/12/22 13:09 Ur Squamous Epith Cells 15-25 /hpf (0-5) H 05/12/22 13:09 Amorphous Sediment Not Reportable 05/12/22 13:09 Urine Bacteria 3+ /hpf (NONE) H 05/12/22 13:09 Urine Mucus 2+ /hpf 05/12/22 13:09 Vitals Last Vital Signs Temp 97.7 F 05/15/22 07:27 Pulse 65 05/15/22 07:27 Resp 18 05/15/22 07:27 BP 111/70 05/15/22 07:27 Pulse Ox 92 05/15/22 07:27 O2 Del Method 05/15/22 07:27 Discharge Plan Discharge Patient Disposition: Home Condition: Stable Prescriptions: New amoxicillin-pot clavulanate 875-125 mg tablet 1 tab PO BID 14 Days Qty: 28 0RF Continued famotidine 40 mg tablet 40 mg PO DAILY Synthroid 50 mcg tablet 50 mcg PO DAILY ferrous sulfate 27 mg iron Tablet 27 mg PO DAILY Lumigan 0.01 % drops 1 drp ophthalmic (eye) BEDTIME Rx Instructions: both eyes Xarelto 20 mg tablet 20 mg PO DAILY Held triamterene-hydrochlorothiazid 37.5-25 mg tablet 1 tab PO DAILY Hold Instructions: See PCP before resuming. Discharge Orders: Discharge Order (Routine); Ordered 05/15/22 Ordered By: Maryam Drew Other Ambulatory Orders: Complete Blood Count w/Auto (Routine) Timeframe: 1 Week Location: Determined by Patient Ordered By: Maryam Drew Referrals: Jonathan Browne DO [Physician] - 05/29/22 9:15 am Discharge Diet: Full LIquid Patient Instructions: Amoxicillin/Clavulanate Potassium (By mouth), Diverticulitis (GEN), Opioid Safety Activity Restrictions/Additional Instructions: Full liquids x3 days then advance to soft diet and stay on that till seen by Dr. Browne in office. Please follow up with general surgery within 2 weeks of discharge. If you ?experience including but not limited to Worsening diarrhea, blood in stool, lightheadedness, dizziness, worsening abdominal pain you should return to the ER. Your blood pressure has been normal on lower side during hospital stay without your blood pressure medication. I have held your BP med for time being. Please follow up with primary care doctor before resuming. Please monitor your BP at home. If greather than 130/80, you may resume your medication after discussion with primary care doctor. Please see your primary doctor within 4-7 days of discharge. Please ensure you complete your prescribed antibiotics. Follow up labs within a week. Discharge Attestations Time Spent in Discharge Care*: greater than 30 min Quality Metrics Clinical Quality Measures [ No reported AMI, CVA or VTE this stay] Coding Level of Care Code Acute [facility] note Diagnoses Diverticulitis of large intestine with complication K57.32
[2022-05-15] MEDS: potassium chloride ER 20 mEq Tablet 40 MEQ PO (10:27)
--- NOTE | 2022-05-15 11:03 | PC.NURSE ---
med to bed for Augmentin. [facility] pharmacy called.
[2022-05-15 11:18] VITALS: BP 132/92; PULSE 70; RESP 20; TEMP 36.6; O2SAT 98
[2022-05-15 12:56] VITALS: BP 132/92; PULSE 70; RESP 18; TEMP 36.6; O2SAT 98
== END 2022-05-15 12:56 | disposition home or self-care (01) | DRG 392 ==
LOC: ER 16:46 → MEDSURG 16:53
PROVIDERS: Physician Assistant; Admitting Provider Student in an Organized Health Care Education/Training Program; Emergency Provider Family Medicine; Visit Provider Internal Medicine
DX: K57.20 Diverticulitis of large intestine with perforation and abscess without bleeding (principal); D68.59 Other primary thrombophilia; E03.9 Hypothyroidism, unspecified; Z86.718 Personal history of other venous thrombosis and embolism; D50.9 Iron deficiency anemia, unspecified; Z79.01 Long term (current) use of anticoagulants
CPT/HCPCS: 36415; 74176; 80053; 80061; 81001; 82607; 82746; 83036; 83540; 83550; 83690; 83735; 84145; 84443; 84703; 85025; 87040; 87641; 96365; 96375; 99285; C9113; J1170; J2270; J2405; J2543; J2765; J7030

== ENCOUNTER 2022-05-22 09:08 | Outpatient (CLI) | payer BC, SELFPAY ==
[2022-05-22 09:57] LABS: Basophils # 0.1 10^3/uL (0.0-0.1); Basophils % 0.9 %; Eosinophils # 0.1 10^3/uL (0.0-0.8); Eosinophils % 1.7 %; Hematocrit 41.2 % (37.0-47.0); Hemoglobin 12.8 g/dL (11.5-15.3); Lymphocytes # 1.7 10^3/uL (0.8-4.8); Lymphocytes % 25.8 %; Mean Corpuscular HGB Conc 31.1 g/dL (30.0-36.0); Mean Corpuscular Volume 86.9 fl (81-99); Mean Platelet Volume 10.8 fL (7.4-10.4); Monocytes # 0.5 10^3/uL (0.2-0.9); Monocytes % 6.9 %; Neutrophils % 64.5 %; Nucleated Red Blood Cells % 0 %; Platelet Count 344 10^3/cmm (130-400); Red Blood Count 4.74 10^6/uL (4.1-5.3); Red Cell Distribution Width 13.8 % (12.1-15.1); White Blood Count 6.7 10^3/uL (4.0-10.0)
== END 2022-05-22 09:09 | disposition home or self-care (01) ==
PROVIDERS: PCP Family Medicine; Visit Provider Internal Medicine
DX: D50.9 Iron deficiency anemia, unspecified (principal)
CPT/HCPCS: 36415; 85025

== ENCOUNTER 2022-08-27 07:03 | Day surgery (SDC) | payer BC, SELFPAY ==
[2022-08-23 10:03] VITALS: BMI 44.9
[2022-08-27 07:28] VITALS: BP 177/108; PULSE 84; RESP 18; TEMP 36.4; O2SAT 99
[2022-08-27] MEDS: sodium chloride 0.9% 1,000 ML 30 ML IV (07:35)
[2022-08-27 07:39] LABS: OR HCG Qualitative Urine Negative (Negative)
--- NOTE | 2022-08-27 07:41 | ANES.PREANE2 ---
Pre-Anesthetic Assessment Height/Weight: Height 1.63 m Weight 118.841 kg Temp Pulse Resp BP Pulse Ox O2 Del Method 97.5 F L 84 18 177/108 99 08/27/22 07:28 08/27/22 07:28 08/27/22 07:28 08/27/22 07:28 08/27/22 07:28 08/27/22 07:28 Operation Date: 08/27/22 08:30 Proposed Procedures p Colonoscopy 23475,R10.9(Not Applicable) - Jonathan Browne DO Familial anesthetic complications: None Was Beta Leon taken within 24 hours: N/A Was Clonidine taken within 24 hours: N/A Last intake: Intake Last Liquid Date 08/26/22 Last Liquid Time 22:00 Last Solid Date 08/25/22 Last Solid Time 19:00 Social No alcohol and No tobacco Exam alert, oriented x 3, clear to auscultation bilaterally and regular rate & rhythm Airway Mallampati: Class II Dentition: full Pulmonary None reported CV/HEM None reported None reported Hepatic None reported GI Gastroesophageal Reflux Disease Metabolic Morbid Obesity and Thyroid Disease [facility] def Anesthetic Plan ASA status: 2 Anesthesia: MAC Risk of > 500 ml blood loss (7ml/kg in children): No Medications/Allergies Home Medications Medication Instructions Recorded Confirmed Last Taken Type bimatoprost 0.01 % eye drops 1 drp ophthalmic (eye) BEDTIME 05/12/22 08/23/22 08/26/22 History (Lumigan) famotidine 40 mg tablet 40 mg PO DAILY 05/12/22 08/23/22 08/26/22 History ferrous sulfate 27 mg iron tablet 27 mg PO DAILY 05/12/22 08/23/22 08/25/22 History levothyroxine 50 mcg tablet 50 mcg PO DAILY 05/12/22 08/23/22 08/26/22 History (Synthroid) rivaroxaban 20 mg tablet (Xarelto) 20 mg PO DAILY 05/12/22 08/23/22 08/24/22 History triamterene 37.5 1 tab PO DAILY PRN swelling 05/12/22 08/23/22 08/25/22 History mg-hydrochlorothiazide 25 mg tablet (Maxzide-25mg) Allergies Allergy/AdvReac Type Severity Reaction Status Date / Time No Known Allergies Allergy Unverified 08/23/22 10:00 Current Medications Generic Name Dose Route Start Last Admin Trade Name Ran PRN Reason Stop Dose Admin Sodium Chloride 1,000 mls @ 30 mls/hr 08/27/22 07:15 08/27/22 07:35 Sodium Chloride 0.9% IV 08/28/22 07:14 30 mls/hr .Q24H WALLACE Administration PFSH Anesthesia Medical History Hypothyroidism Iron deficiency anemia No pertinent family history Protein S deficiency Surgical History History of History of cholecystectomy Social History Smoking and tobacco status: never smoked Female Reproductive History Date of last menstrual period: 08/08/22 Data Anesthesia Cardiac Studies: No Data to Display
--- NOTE | 2022-08-27 08:29 | P.HP_ITS ---
Providers/Chief Complaint Primary Care Provider: Efren Khalil MD Chief Complaint: R10.9 History of Present Illness Tiara Briggs is a 46 year old female here for colonoscopy Review of Systems General: Reports: 10 or more systems reviewed and unremarkable except in HPI and below Medications/Allergies Home Medications Medication Instructions Recorded Confirmed Last Taken Type bimatoprost 0.01 % eye drops 1 drp ophthalmic (eye) BEDTIME 05/12/22 08/23/22 08/26/22 History (Lumigan) famotidine 40 mg tablet 40 mg PO DAILY 05/12/22 08/23/22 08/26/22 History ferrous sulfate 27 mg iron tablet 27 mg PO DAILY 05/12/22 08/23/22 08/25/22 History levothyroxine 50 mcg tablet 50 mcg PO DAILY 05/12/22 08/23/22 08/26/22 History (Synthroid) rivaroxaban 20 mg tablet (Xarelto) 20 mg PO DAILY 05/12/22 08/23/22 08/24/22 History triamterene 37.5 1 tab PO DAILY PRN swelling 05/12/22 08/23/22 08/25/22 History mg-hydrochlorothiazide 25 mg tablet (Maxzide-25mg) Allergies Allergy/AdvReac Type Severity Reaction Status Date / Time No Known Allergies Allergy Unverified 08/23/22 10:00 PFSH Acute PFSH: Medical History Hypothyroidism Iron deficiency anemia No pertinent family history Protein S deficiency Surgical History History of History of cholecystectomy Social History Smoking and tobacco status: never smoked Female Reproductive History: Date of last menstrual period: 08/08/22 Vitals/I&O/Wt Last Vital Signs Temp 97.5 F L 08/27/22 07:28 Pulse 84 08/27/22 07:28 Resp 18 08/27/22 07:28 BP 177/108 08/27/22 07:28 Pulse Ox 99 08/27/22 07:28 O2 Del Method 08/27/22 07:28 A&P Assessment and plan (1) Diverticulitis of large intestine with complication: Plan Colonoscopy The risks and benefits of the procedure, including bleeding, infection, intestinal perforation requiring surgery, missed lesion, were explained to the patient. She is understanding of the risks and wishes to proceed. Attestations Medical Necessity Statement*: Home Coding Level of Care Code Acute Composing Room Machin[facility] Diagnoses Diverticulitis of large intestine with complication K57.32
[2022-08-27 08:57] VITALS: BP 102/63; PULSE 70; RESP 12; TEMP 36.3; O2SAT 98
[2022-08-27 09:06] VITALS: BP 111/71; PULSE 71; RESP 12; O2SAT 97
[2022-08-27 09:20] VITALS: BP 130/83; PULSE 62; RESP 16; O2SAT 99
--- NOTE | 2022-08-27 14:08 | ANE.PACU2 ---
Inpatient post-anesthesia follow up: Airway intact: Yes Vital signs: Temperature 97.4 F Pulse Rate 62 Respiratory Rate 16 Blood Pressure 130/83 Pulse Oximetry 99 Oxygen Delivery Me thod Room Air Oxygen Flow Rate Fraction of Inspir ed Oxygen Hydration adequate: Yes Nausea and vomiting: No Pain level: 1 Mental status: Baseline
== END 2022-08-27 09:29 | disposition home or self-care (01) ==
PROVIDERS: Anesthesiology; PCP Family Medicine; Visit Provider Surgery
PROC: 0DJD8ZZ Inspection of Lower Intestinal Tract, Via Natural or Artificial Opening Endoscopic (ICD-10-PCS; CPT 45378; principal; 2022-08-27 08:30)
DX: K57.30 Diverticulosis of large intestine without perforation or abscess without bleeding (principal); K21.9 Gastro-esophageal reflux disease without esophagitis; E66.01 Morbid (severe) obesity due to excess calories; Z68.42 Body mass index [BMI] 45.0-49.9, adult; E03.9 Hypothyroidism, unspecified
CPT/HCPCS: 45378; 84703; J2704; J7030

== ENCOUNTER 2025-02-03 08:59 | Outpatient (CLI) | payer BC, SELFPAY ==
--- NOTE | 2025-02-03 09:00 | MM_ITS ---
WS: [id number] SCREENING DIGITAL TOMOSYNTHESIS MAMMOGRAM WITH CAD HISTORY: SCREENING COMPARISON: 12/17/2022, 07/19/2020 Bilateral CC and MLO with tomosynthesis views submitted. Synthetic mammography reviewed. Computer aided detection analyzed. Breast composition: There are scattered areas of fibroglandular density. No suspicious masses, microcalcifications or architectural distortion. MM/MM scr BI tomosynthesis [id number] IMPRESSION: BI-RADS: 1 - Negative. FOLLOW UP: 1 Year Follow-up
== END 2025-02-03 09:00 | disposition home or self-care (01) ==
LOC: MOBLMAM 09:00
PROVIDERS: PCP Family Medicine; Visit Provider Family Medicine
DX: Z12.31 Encounter for screening mammogram for malignant neoplasm of breast (principal); R92.323 Mammographic fibroglandular density, bilateral breasts
CPT/HCPCS: 77063; 77067